=== PATIENT | female | born 1980 | race Caucasian/White ===

== ENCOUNTER → 2016-10-07 | Outpatient (CLI) | payer OTHER ==
--- NOTE | 2016-10-08 10:06 | USB ---
Reason for exam: clinical finding. History: Family history of breast cancer in maternal grandmother. Took hormonal contraceptives for 2 years beginning at age 14. Indicated problem(s): lump or thickening in both breasts. Physical Findings: Nurse Summary: 0.75cm movable nodule, very close to skin (nurse dw). US Breast BILAT Right breast ultrasound including all four quadrants, the retroareolar region and axilla demonstrates no cystic or solid lesion seen. Left breast ultrasound including all four quadrants, the retroareolar region and axilla demonstrates a 1.0 x 1.0 x 0.3cm hypoechoic lesion at 7 o'clock, tract seen to skin line. These results were verbally communicated with the patient and result sheet given to the patient on 10/08/16. ASSESSMENT: Probably benign, BI-RAD 3 RECOMMENDATION: Surgical consultation of both breasts. (dermatology) Manage patient on a clinical basis.
== END | disposition home or self-care (01) ==
LOC: RADUSWWP 07:24
PROVIDERS: ATTEND Family Medicine
DX: N63 Unspecified lump in breast (principal)

== ENCOUNTER → 2016-11-21 | Outpatient (CLI) | payer OTHER ==
--- NOTE | 2016-11-22 11:56 | US ---
EXAMINATION TYPE: US transvaginal DATE OF EXAM: 11/21/2016 4:06 PM COMPARISON: Previous exam 01 June 2014 transvaginal ultrasound CLINICAL HISTORY: R19.00 Intra-abdominal and pelvic swelling, mass. Pt states Dr felt possible pelvic mass on examination TECHNIQUE: Transvaginal (TV) Date of LMP: 11/19/2016 EXAM MEASUREMENTS: Uterus: 9.6 x 5.4 x 5.9 cm Endometrial Stripe: 0.7 cm Right Ovary: 3.1 x 1.8 x 1.5 cm Left Ovary: 2.9 x 2.1x 2.2 cm 1. Uterus: Anteverted, "bulky" fundus Heterogeneous with hypoechoic area posterior to c-sec scar= 1.3 x 0.7 x 1.1 cm/ Nabothian cyst in cervix 2. Endometrium: wnl 3. Right Ovary: wnl 4. Left Ovary: wnl 5. Bilateral Adnexa: wnl 6. Posterior cul-de-sac: wnl IMPRESSION: Isoechoic area seen towards the lower uterine segment is an area of previously identified cystic change and may be related to patient's section but is indeterminate, follow-up could be performed to assess for stability or change. No pelvic masses evident, consider CT scan or MRI as indicated
== END ==
LOC: RADUSWWP 15:41
PROVIDERS: ATTEND Family Medicine
DX: R19.00 Intra-abdominal and pelvic swelling, mass and lump, unspecified site (principal); Z79.2 Long term (current) use of antibiotics
CPT/HCPCS: 76830

== ENCOUNTER → 2018-07-28 | Outpatient (CLI) | payer OTHER ==
--- NOTE | 2018-07-28 12:00 | CT ---
EXAMINATION TYPE: CT sinus wo con DATE OF EXAM: 07/28/2018 COMPARISON: NONE HISTORY: sinus congestion and multiple infections for years CT DLP: 588 mGycm. Automated Exposure Control for Dose Reduction was Utilized. TECHNIQUE: CT scan of the sinuses is performed without contrast, axial images are obtained, coronal r eformatted images are also reviewed. FINDINGS: The paranasal sinuses including the frontal, ethmoid, sphenoid, and maxillary sinuses bilat erally are well-aerated without abnormal opacification. The ostiomeatal complex is patent bilaterally on the coronal images. Visualized portion of mastoid air cells show no abnormal opacification. No significant nasal turbinat e mucosal hypertrophy is seen. Overall nasal septum remains midline. The globes are intact bilaterall y. Mastoid air cells are well aerated. Maxillary spine and nasal bones appear intact. Globes are sym metric. Lenses appear in place. Evaluation of the intracranial structures is limited given technique. IMPRESSION: The sinuses are clear and the ostiomeatal complex is patent bilaterally. No current sinu sitis.
== END | disposition home or self-care (01) ==
LOC: RADCTMAIN 11:06
PROVIDERS: ATTEND Family Medicine
DX: J32.9 Chronic sinusitis, unspecified (principal)
CPT/HCPCS: 70486